=== PATIENT | female | born 1980 | race African-American/Black ===

== ENCOUNTER 2018-07-20 09:45 | Inpatient (IN) | payer OTHER ==
[2018-07-20 10:12] LABS: #Lymphocytes 1.8 thou/uL (1.20-3.40); #Monocytes 0.6 thou/uL (0.11-0.59); #Neutrophils 9.2 thou/uL (1.40-6.50); %Basophils 0.2 % (0.0-1.0); %Eosinophils 0.3 % (0.0-10.0); %Lymphocytes 15.7 % (21.0-51.0); %Monocytes 4.9 % (0.0-10.0); %Neutrophils 78.8 % (42.0-75.0); Mean Corpuscular HGB CONC 30.9 g/dL (32.0-36.0); Mean Corpuscular Hemoglobin 20.4 pg (27.0-31.0); Mean Corpuscular Volume 66.1 fL (78.0-98.0); Mean Platelet Volume 9.1 fL (7.4-10.4); Platelet Count 354 thou/uL (130-400); RBC Distribution Width 15.4 % (11.5-14.5); Red Blood Cell (RBC) Count 5.88 mill/uL (4.20-5.40); White Blood Cell (WBC) Count 11.6 thou/uL (4.8-10.8)
[2018-07-20 10:34] LABS: ALT (SGPT) 12 U/L (8-55); AST (SGOT) 11 U/L (5-34); Albumin 4.3 g/dL (3.5-5.0); Alkaline Phosphatase 105 U/L (40-150); Anion Gap 15 mmol/L (10-20); BUN (Urea Nitrogen) 8 mg/dL (7.0-18.7); Bilirubin, Total 0.5 mg/dL (0.2-1.2); Calc. Creatinine Clearance 0 mL/min (70-130); Calcium 9.8 mg/dL (7.8-10.44); Carbon Dioxide 22 mmol/L (22-29); Chloride 98 mmol/L (98-107); Estimated GFR-MDRD Greater than 90; Globulin 3.7 g/dL (2.4-3.5); Glucose 276 mg/dL (70-105); Lipase 8 U/L (8-78); Potassium 3.9 mmol/L (3.5-5.1); Sodium 131 mmol/L (136-145)
[2018-07-20] MEDS ORDERED: Ondansetron PF 4 MG/2 ML Vial ONE ×2 (11:00→14:54)
[2018-07-20 11:34] LABS: BHCG - Serum Negative (NEGATIVE); Pregs Control Background? CLEAR/WHITE (CLR/WHITE); Pregs Control Bar Appear? YES (CONTROL BAR)
[2018-07-20] MEDS ORDERED: Bisacodyl 5 MG TAB PO PRN (13:50)
[2018-07-20] MEDS ORDERED: hydrALAZINE 20 MG/ML VIAL SLOW IVP PRN (13:52)
[2018-07-20] MEDS ORDERED: Dextrose 5% in Water 1,000 ML IV PRN (13:52)
[2018-07-20] MEDS ORDERED: HumaLOG 300 UNITS/3 ML VIAL SC PRN (13:52)
[2018-07-20] MEDS ORDERED: Dextrose 50% Abboject 50 ML SYRINGE SLOW IVP PRN (13:52)
--- NOTE | 2018-07-20 14:11 | HP ---
PRIMARY CARE PROVIDER: Jackie Mcguire NP. CHIEF COMPLAINT: Nausea and vomiting. HISTORY OF PRESENT ILLNESS: Ms. Mac is a pleasant 37-year-old lady, who was seen at [facility] on July 20, 2018. She reports that four days ago, she developed abdominal pain. She reports that it was all over her abdomen , initially on and off, but subsequently constant, nonradiating, currently 4/10, accompanied by nausea and vomiting, not by diarrhea. She went to an emergency room two nights ago. She was diagnosed with the urinary tract infection and received antibiotic. She also received nausea medications. She was discharged home, but continued to have nausea and vomiting. She went to the emergency room again yesterday and received more medications for nausea as well as morphine. She was then discharged home. She presented to this emergency room because she continued to have nausea and vomiting. She denies any fevers or chills. She denies any chest pain. She reports that she is unable to tolerate any oral medications or diet and feels weak overall. REVIEW OF SYSTEMS: All other systems reviewed and found to be negative. PAST MEDICAL HISTORY: Diabetes mellitus type 2, dyslipidemia, and hypertension. PAST SURGICAL HISTORY: None. SOCIAL HISTORY: The patient denies tobacco use, alcohol use, or recreational drug use. ALLERGIES: NO KNOWN DRUG ALLERGIES. CURRENT MEDICATIONS: These need to be clarified, the patient reports that she is on medications for hypertension and diabetes. FAMILY HISTORY: No family history of premature coronary artery disease. PHYSICAL EXAMINATION: GENERAL: On examination, Ms. Mac is awake and alert, not in acute distress. VITAL SIGNS: Blood pressure is 154/93, pulse 94, respiratory rate 20, and oxygen saturation 100% on room air. She is afebrile. EYES: No scleral icterus, no conjunctival pallor. ENT: Moist mucosal membranes. No oropharyngeal erythema or exudates. NECK: Supple, nontender, trachea is midline. RESPIRATORY: Accessory muscles of breathing are not active. Chest wall movements are symmetric bilaterally. Lungs are clear to auscultation without wheeze, rhonchi, or crepitations. CARDIOVASCULAR: S1 and S2 are heard, regular. Peripheral pulses palpable. No carotid bruit. No pericardial rub. ABDOMEN: Soft, mild tenderness in the epigastrium and right upper quadrant and left upper quadrant, lower abdomen is nontender, bowel sounds are heard. NEUROLOGIC: Cranial nerves 2 through 12 are intact. MUSCULOSKELETAL: Power is 5/5 in all 4 extremities. SKIN: No rashes or subcutaneous nodules. LYMPHATIC: No cervical lymphadenopathy. PSYCHIATRIC: Normal mood, normal affect, the patient is oriented to person, place, and time. LABORATORY DATA: Ms. Mac's labs and investigations were reviewed. She has leukocytosis with 11,600 white cells, of which 79% are neutrophils. MCV is low , but hemoglobin is normal. Platelet count is normal. She has hyponatremia with sodium of 131, normal potassium, and an unremarkable liver profile. Lipase is normal. Lactic acid is normal. Serum test is negative. ASSESSMENT AND PLAN: Ms. Mac is a pleasant 37-year-old lady, who was seen at [facility] on July 20, 2018. Her problem list includes; 1. Nausea and vomiting: Etiology is unclear, at this point in time, the patient will be admitted to the hospital because she is unable to tolerate oral medications or diet. Should note that she had a CT scan of abdomen and pelvis yesterday which showed a 2.5 cm right ovarian cyst, but no acute abdominal or pelvic findings otherwise. She will receive antiemetics and pain medications as needed. 2. Diabetes mellitus type 2: We will start patient on Accu-Cheks and insulin sliding scale. 3. Hypertension: We will start p.r.n. IV hydralazine, monitor vital signs and titrate antihypertensives as needed. 4. Hyponatremia: Mild, we will recheck sodium level. 5. Many thanks for allowing me to participate in your patient's care. Please feel free to contact me with any questions or concerns. LEVEL OF RISK: Moderate. LEVEL OF COMPLEXITY: Moderate. Job ID: [id number] [facility]
[2018-07-20] MEDS ORDERED: Morphine 4 MG/ML VIAL ONE (14:54)
[2018-07-20] MEDS: Sodium Chloride 0.9% 1,000 ML IV SCH (14:57)
[2018-07-20] MEDS: Ondansetron PF 4 MG/2 ML Vial IVP PRN (15:01)
[2018-07-20] MEDS: Morphine 2 MG/ML SYRINGE SLOW IVP PRN ×2 (15:02→19:13)
[2018-07-20 16:12] VITALS: BMI 37.8
[2018-07-20] MEDS: Promethazine HCl 25 MG/ML VIAL IM/IV PRN (19:13)
[2018-07-21] MEDS: Sodium Chloride 0.9% 1,000 ML IV SCH ×3 (01:08→22:13)
[2018-07-21] MEDS: Ondansetron PF 4 MG/2 ML Vial IVP PRN ×3 (04:11→21:03)
[2018-07-21] MEDS: Morphine 2 MG/ML SYRINGE SLOW IVP PRN ×4 (04:14→21:01)
[2018-07-21 06:03] LABS: Anion Gap 15 mmol/L (10-20); BUN (Urea Nitrogen) 8 mg/dL (7.0-18.7); Calc. Creatinine Clearance 198 mL/min (70-130); Calcium 8.8 mg/dL (7.8-10.44); Carbon Dioxide 19 mmol/L (22-29); Chloride 102 mmol/L (98-107); Estimated GFR-MDRD Greater than 90; Glucose 251 mg/dL (70-105); Potassium 3.8 mmol/L (3.5-5.1); Sodium 132 mmol/L (136-145)
[2018-07-21 06:42] LABS: #Lymphocytes 1.8 thou/uL (1.20-3.40); #Monocytes 0.5 thou/uL (0.11-0.59); %Basophils 0.5 % (0.0-1.0); %Eosinophils 0.2 % (0.0-10.0); %Lymphocytes 21.4 % (21.0-51.0); %Monocytes 6.1 % (0.0-10.0); %Neutrophils 71.8 % (42.0-75.0); Elliptocytes SLIGHT = 2-5 cells (100X) (0-1/hpf); Hemoglobin 11.3 g/dL (12.0-16.0); MDiff Complete? YES; Mean Corpuscular HGB CONC 30.7 g/dL (32.0-36.0); Mean Corpuscular Hemoglobin 20.7 pg (27.0-31.0); Mean Corpuscular Volume 67.3 fL (78.0-98.0); Mean Platelet Volume 9.6 fL (7.4-10.4); Platelet Count 326 thou/uL (130-400); Platelet Morphology Comment Appears Adequate; RBC Distribution Width 15.2 % (11.5-14.5); Red Blood Cell (RBC) Count 5.48 mill/uL (4.20-5.40); White Blood Cell (WBC) Count 8.3 thou/uL (4.8-10.8)
[2018-07-21] MEDS: Promethazine HCl 25 MG/ML VIAL IM/IV PRN (09:00)
--- NOTE | 2018-07-21 11:58 | PDOC.PN ---
- Subjective Encounter Start Date: 07/21/18 Encounter Start Time: 09:00 Subjective: Patient examined, reports pain to upper abdomen - Objective Vital Signs & Weight: Vital Signs (12 hours) Temp Pulse Resp BP Pulse Ox 07/21/18 07:40 99.0 F 92 16 152/81 H 98 07/21/18 04:11 99.3 F 87 14 159/87 H 98 Weight Weight 112.689 kg I&O: 07/20/18 07/21/18 07/22/18 06:59 06:59 06:59 Intake Total 1434 Output Total 1000 Balance 434 Result Diagrams: 07/21/18 04:26 07/21/18 04:26 Additional Labs: Accuchecks 07/21/18 07/20/18 07/20/18 10:43 20:47 16:40 POC Glucose 240 H 257 H 230 H Phys Exam - Physical Examination HEENT: PERRLA, moist MMs Neck: no nodes, no JVD Respiratory: clear to auscultation bilateral Cardiovascular: RRR, no significant murmur Gastrointestinal: soft, positive bowel sounds TTP upper abdomen Musculoskeletal: no edema, pulses present Neurological: non-focal, normal sensation Lymphatic: no nodes Psychiatric: normal affect Skin: cap refill <2 seconds Dx/Plan (1) Nausea & vomiting Code(s): R11.2 - NAUSEA WITH VOMITING, UNSPECIFIED Status: Acute (2) Epigastric abdominal pain Code(s): R10.13 - EPIGASTRIC PAIN Status: Acute (3) Hypertension Code(s): I10 - ESSENTIAL (PRIMARY) HYPERTENSION Status: Chronic (4) Hyponatremia Code(s): E87.1 - HYPO-OSMOLALITY AND HYPONATREMIA Status: Acute - Plan cont current plan of care Dr. Aguilar has been consulted and will perform EGD on patient tomorrow -: IV fluids, anti-emetics are ordered -: We will keep patient NPO after midnight, clear liquids today -: Will monitor, repeat labs in AM * . Review of Systems - Review of Systems Gastrointestinal: Nausea, Vomiting, Abdominal Pain - Medications/Allergies Allergies/Adverse Reactions: Allergies Allergy/AdvReac Type Severity Reaction Status Date / Time No Known Drug Allergies Allergy Verified 07/20/18 13:50 Medications: Current Medications Bisacodyl (Dulcolax) 10 mg PO DAILYPRN PRN PRN Reason: Constipation Dextrose/Water (Dextrose 50%) 25 gm SLOW IVP PRN PRN PRN Reason: Hypoglycemia Glucagon (Glucagon) 1 mg IM PRN PRN PRN Reason: Hypoglycemia Hydralazine HCl (Apresoline) 10 mg SLOW IVP Q6H PRN PRN Reason: SBP Greater Than 170 Sodium Chloride (Normal Saline 0.9%) 1,000 mls @ 100 mls/hr IV .Q10H [facility] Last Admin: 07/21/18 09:02 Dose: 1,000 mls Dextrose/Water (D5w) 1,000 mls @ 0 mls/hr IV .Q0M PRN PRN Reason: Hypoglycemia Penicillin G Potassium 2.5 (mill.units/ Device) 50 mls @ 100 mls/hr IVPB Q4HR [facility] Insulin Human Lispro (Humalog) 0 units SC .MILD SLIDING SCALE PRN PRN Reason: Mild Correctional Scale Morphine Sulfate (Morphine) 2 mg SLOW IVP Q4H PRN PRN Reason: Pain Last Admin: 07/21/18 08:55 Dose: 2 mg Ondansetron HCl (Zofran) 4 mg IVP Q6H PRN PRN Reason: Nausea/Vomiting Last Admin: 07/21/18 04:11 Dose: 4 mg Promethazine HCl (Phenergan) 25 mg IM/IV Q6H PRN PRN Reason: Nausea/Vomiting Last Admin: 07/21/18 09:00 Dose: 25 mg
[2018-07-21] MEDS ORDERED: Pen G 2.5 MILL.UNITS/50 ML BAG IVPB SCH (13:00)
[2018-07-21] MEDS: Penicillin G 2.5 MILL.units 2.5 MILL.UNITS in Premix Bag 1 BAG IVPB SCH ×3 (13:03→21:08)
--- NOTE | 2018-07-21 14:38 | CON ---
DATE OF CONSULTATION: 07/21/2018 REASON FOR CONSULTATION: Intractable nausea and vomiting. HISTORY OF PRESENT ILLNESS: Lili Mac is a 37-year-old woman with a history of obesity, diabetes, hypertension, and hyperlipidemia. She denies any prior gastrointestinal history. No prior history of peptic ulcer disease. No chronic gastrointestinal symptoms. Five days ago, she had the acute onset of generalized abdominal pain associated with nausea and vomiting. She has had vomiting every day since then. She reports she is really unable to keep any food or even liquids or pills down. There has been no diarrhea with this, in fact, her last bowel movement was five days ago when the symptoms started. Her sister got sick around the same time, and she is not sure if her sister is still symptomatic, but thinks she is better. She has gone to the Emergency Department a couple of times over the past few days and received IV fluids. Two days ago, urinalysis demonstrated 11 to 20 wbc's and urine cultures growing out group B strep. The patient was given antibiotics, but states she was not able to tolerate oral antibiotics. There was no hematemesis. Upon repeat presentation yesterday, she was admitted to the hospital. Liver tests and lipase have been normal. She had a mild leukocytosis of 11 on admission and this is now normalized this morning with IV fluids and antiemetics. She says she is still significantly nauseated and has migratory sharp abdominal pains throughout the abdomen unless she is sleeping. She has been afebrile and hemodynamically stable. She does report that she usually takes a single low-dose Advil or aspirin most every day. REVIEW OF SYSTEMS: Full review of systems including constitutional, head, eyes, ears, nose, throat, GI, , cardiovascular, respiratory, musculoskeletal, and neurologic systems are negative except as noted in the HPI. PAST MEDICAL HISTORY: Diabetes type 2, hypertension, hyperlipidemia, and obesity. ALLERGIES: NO KNOWN DRUG ALLERGIES. OUTPATIENT MEDICATIONS: 1. Metformin. 2. Lisinopril. 3. Levemir insulin 40 units daily. 4. Lipitor. FAMILY HISTORY: Noncontributory. SOCIAL HISTORY: No tobacco, alcohol, or drug use. PHYSICAL EXAMINATION: VITAL SIGNS: Temperature 99.0, pulse 92, blood pressure 152/81, and 98% oxygen saturation on room air. GENERAL: A 37-year-old woman, lying in bed fairly comfortably, in mild distress from nausea. SKIN: No jaundice. No rashes were palpable. EYES: No scleral icterus. Extraocular movements intact. ENT: Mucous membranes moist. No oral lesions. LYMPH: No submandibular or supraclavicular lymphadenopathy. Thyroid nontender to palpation. HEART: Regular rate and rhythm. LUNGS: Clear to auscultation bilaterally. ABDOMEN: Bowel sounds are present throughout. Obese, but nondistended. She is tender to palpation in the epigastrium and right upper quadrant. There is no guarding or rebound tenderness. Nontender to palpation in the lower abdomen. EXTREMITIES: No peripheral edema. VESSELS: Radial pulses 2+ bilaterally. NEURO: Cranial nerves 2 through 12 intact bilaterally. No focal deficits. LABORATORY STUDIES: WBC 8.3, hemoglobin 11.3, and platelets 326. Sodium 132, potassium 3.8, BUN 8, creatinine 0.70, glucose 240, and lactic acid 1.3. test negative. Lipase 8. Total bilirubin 0.5, alkaline phosphatase 105, AST 11, ALT 12, and albumin 4.3. From 07/18/2018, urinalysis showed 11 to 20 wbc's and urine culture is growing out group B strep. IMAGING STUDIES: CT of the abdomen and pelvis on 07/19/2018 demonstrated only a 2.5 cm right ovarian cyst and an IUD in place. There is no evidence of any inflammatory changes. Liver, spleen, pancreas, and bowel all appeared normal. ASSESSMENT AND PLAN: 1. Nausea and vomiting, intractable over the past 5 days. 2. Generalized abdominal pain, migratory. 3. Urinary tract infection with group B strep. 4. Diabetes. With normal LFTs and lipase and negative CT imaging, I doubt biliary etiology for her current symptoms. There is no evidence of bowel obstruction or suggest any significant small bowel or colonic inflammatory changes. Presentation seems most consistent with likely viral gastroenteritis. Consider also possibly nausea secondary to as yet untreated urinary tract infection. Gastroparesis or upper gastrointestinal mucosal pathology such as gastritis or peptic ulcer disease are also possibilities. At this time, I am starting the patient on IV penicillin G 2.5 million units IV q.4 hours as treatment for her group B strep, as she still seems unable to tolerate oral antibiotics. Continue supportive care with antiemetics and IV fluids. We will tentatively plan for esophagogastroduodenoscopy tomorrow to rule out peptic ulcer disease, though if the patient has symptom resolution by tomorrow, we could potentially avoid this. If all the above workup is negative, then at some point, could consider gastric emptying scan to rule out gastroparesis. Thank you for the consultation. Please call at anytime with questions or concerns. Job ID: [id number]
[2018-07-21] MEDS ORDERED: Pantoprazole 40 MG VIAL IVP SCH (22:45)
[2018-07-22] MEDS: Penicillin G 2.5 MILL.units 2.5 MILL.UNITS in Premix Bag 1 BAG IVPB SCH ×6 (00:24→20:27)
[2018-07-22] MEDS: Morphine 2 MG/ML SYRINGE SLOW IVP PRN ×4 (02:54→20:24)
[2018-07-22] MEDS: Promethazine HCl 25 MG/ML VIAL IM/IV PRN ×3 (02:56→20:43)
[2018-07-22] MEDS ORDERED: Ondansetron PF 4 MG/2 ML Vial ONE (07:48)
[2018-07-22] MEDS ORDERED: Fentanyl 100 MCG/2 ML VIAL ONE (08:00)
[2018-07-22] MEDS ORDERED: Promethazine HCl 25 MG/ML VIAL SLOW IVP PRN (08:44)
[2018-07-22] MEDS ORDERED: HYDROmorphone 2 MG/ML VIAL SLOW IVP PRN (08:44)
[2018-07-22] MEDS ORDERED: Promethazine HCl 25 MG/ML VIAL IM PRN (08:44)
[2018-07-22] MEDS ORDERED: Promethazine HCl 25 MG/ML VIAL ONE (08:46)
[2018-07-22] MEDS ORDERED: Pantoprazole 40 MG VIAL IVP SCH (09:11)
[2018-07-22] MEDS ORDERED: Sodium Chloride 0.9% (PF) 10 ML VIAL FS PRN (09:12)
--- NOTE | 2018-07-22 09:15 | OP ---
DATE OF PROCEDURE: 07/22/2018 [employer] HEL[employer] SURGEON: None. PROCEDURE PERFORMED: Esophagogastroduodenoscopy with biopsies. INDICATIONS: 1. Intractable nausea and vomiting. 2. Generalized migratory abdominal pain. MEDICATIONS: See Anesthesia record. FINDINGS: After discussion of the risks, benefits, and alternatives of the procedure, informed consent was obtained and witnessed. Pre-endoscopic cardiopulmonary examination was satisfactory. Time-out was performed before sedation was achieved. Sedation was achieved with Anesthesia assistance in the endoscopy unit. A Pentax adult upper endoscope was placed into the oropharynx and passed through the cricopharyngeus under direct visualization. The proximal and mid esophageal mucosa appeared normal. In the distal esophagus from 30 to 40 cm from the incisors, there is [id number] erosive esophagitis. There are multiple long linear erosions with friability, but no bleeding within the distal esophagus. The appearance is consistent with reflux esophagitis. The endoscope was advanced into the stomach. Forward and retroflexed views of the entire gastric mucosa were obtained. There was no evidence of any old blood or active bleeding. In the gastric antrum, there is patchy erythema and a few discrete and linear erosions. This is [id number] in severity. Biopsies were obtained from the gastric antrum and body to rule out H pylori infection. The endoscope was advanced beyond the pylorus and into the first and second portions of the duodenum, which appeared normal. The upper endoscope was completely withdrawn and the patient allowed to recover. The patient tolerated the procedure well. There were no immediate postprocedure complications. IMPRESSION: 1. Erosive esophagitis, in the distal 7 cm of the esophagus. 2. Patchy erosive gastritis in the antrum, mild to moderate. Biopsied to rule out Helicobacter pylori. 3. Otherwise, normal esophagogastroduodenoscopy. RECOMMENDATIONS: 1. Twice daily proton pump inhibitor. 2. Follow up pathology on the gastric biopsies. 3. We will go ahead and get an abdominal ultrasound. 4. Advance diet as tolerated. Job ID: [id number]
[2018-07-22] MEDS: Pantoprazole 40 MG VIAL IVP SCH ×2 (09:24→20:27)
[2018-07-22] MEDS: Sodium Chloride 0.9% 1,000 ML IV SCH ×2 (09:37→20:24)
[2018-07-22] MEDS ORDERED: Fentanyl 100 MCG/2 ML VIAL SLOW IVP SCH (10:00)
--- NOTE | 2018-07-22 10:47 | ULT ---
US Abdominal History: [Abdominal pain] Comparison: CT July 2018 Findings: Real-time grayscale and color evaluation of the abdomen was performed. Visualized portion o f the aorta IVC and pancreas are unremarkable. Hepatic echotexture is normal. Portal vein is patent with antegrade flow. Common bile duct is normal. Gallbladder wall thickness is normal. No cholelithiasis. No pericholecystic fluid. Right kidney measures 11.7 x 5.2 x 5.8 cm and the left kidney measures 12.3 x 5.4 x 4.8 cm without ma ss, hydronephrosis, or abnormal calcifications. Spleen measures 10.5 cm in length. Impression: Normal examination of the abdomen.
[2018-07-22] MEDS: Ondansetron PF 4 MG/2 ML Vial IVP PRN ×2 (11:03→16:15)
[2018-07-22] MEDS ORDERED: PROPOFOL 200 MG/20 ML VIAL ONE (12:19)
[2018-07-22] MEDS ORDERED: Lidocaine 1% PF 5 ML VIAL ONE (12:19)
[2018-07-22] MEDS: Sucralfate 1 GM TAB PO SCH ×2 (15:04→20:27)
--- NOTE | 2018-07-22 15:49 | PDOC.PN ---
- Subjective Encounter Start Date: 07/22/18 Encounter Start Time: 14:00 Subjective: Patient examined this afternoon, had an EGD this morning -: and was off the unit this am. Reports pain and nausea better -: but pain returning after sips of sprite. - Objective Vital Signs & Weight: Vital Signs (12 hours) Temp Pulse Resp BP Pulse Ox 07/22/18 11:40 98.9 F 93 16 148/97 H 98 07/22/18 09:05 98.4 F 88 20 139/95 H 100 Weight Weight 114.169 kg I&O: 07/21/18 07/22/18 07/23/18 06:59 06:59 06:59 Intake Total 1434 2398 500 Output Total 1000 2200 Balance 434 198 500 Result Diagrams: 07/21/18 04:26 07/21/18 04:26 Additional Labs: Accuchecks 07/22/18 07/22/18 07/21/18 11:43 04:39 20:54 POC Glucose 237 H 234 H 223 H 07/21/18 16:44 POC Glucose 214 H Phys Exam - Physical Examination Constitutional: NAD appears in some discomfort HEENT: PERRLA, moist MMs Neck: no nodes Respiratory: clear to auscultation bilateral Cardiovascular: RRR Gastrointestinal: soft, positive bowel sounds mild epigastric tenderness to palpation Musculoskeletal: no edema, pulses present Neurological: non-focal, normal sensation, moves all 4 limbs Lymphatic: no nodes Psychiatric: normal affect, A&O x 3 Skin: cap refill <2 seconds Dx/Plan (1) Nausea & vomiting Code(s): R11.2 - NAUSEA WITH VOMITING, UNSPECIFIED Status: Acute (2) Epigastric abdominal pain Code(s): R10.13 - EPIGASTRIC PAIN Status: Acute (3) Hypertension Code(s): I10 - ESSENTIAL (PRIMARY) HYPERTENSION Status: Chronic (4) Hyponatremia Code(s): E87.1 - HYPO-OSMOLALITY AND HYPONATREMIA Status: Acute - Plan cont current plan of care Protonix BID, added carafate, increasing diet as tolerated -: Will recheck labs in am, continue to monitor -: Continue IV fluids, anti-emetics * . Review of Systems - Review of Systems Gastrointestinal: Nausea, Abdominal Pain - Medications/Allergies Allergies/Adverse Reactions: Allergies Allergy/AdvReac Type Severity Reaction Status Date / Time No Known Drug Allergies Allergy Verified 07/20/18 13:50 Medications: Current Medications Bisacodyl (Dulcolax) 10 mg PO DAILYPRN PRN PRN Reason: Constipation Dextrose/Water (Dextrose 50%) 25 gm SLOW IVP PRN PRN PRN Reason: Hypoglycemia Glucagon (Glucagon) 1 mg IM PRN PRN PRN Reason: Hypoglycemia Hydralazine HCl (Apresoline) 10 mg SLOW IVP Q6H PRN PRN Reason: SBP Greater Than 170 Sodium Chloride (Normal Saline 0.9%) 1,000 mls @ 100 mls/hr IV .Q10H [facility] Last Admin: 07/22/18 09:37 Dose: 1,000 mls Dextrose/Water (D5w) 1,000 mls @ 0 mls/hr IV .Q0M PRN PRN Reason: Hypoglycemia Penicillin G Potassium 2.5 (mill.units/ Device) 50 mls @ 100 mls/hr IVPB Q4HR [facility] Insulin Human Lispro (Humalog) 0 units SC .MILD SLIDING SCALE PRN PRN Reason: Mild Correctional Scale Morphine Sulfate (Morphine) 2 mg SLOW IVP Q4H PRN PRN Reason: Pain Last Admin: 07/22/18 10:45 Dose: 2 mg Ondansetron HCl (Zofran) 4 mg IVP Q6H PRN PRN Reason: Nausea/Vomiting Last Admin: 07/22/18 11:03 Dose: 4 mg Pantoprazole Sodium (Protonix) 40 mg IVP Q12HR [facility] Last Admin: 07/22/18 09:24 Dose: 40 mg Promethazine HCl (Phenergan) 25 mg IM/IV Q6H PRN PRN Reason: Nausea/Vomiting Last Admin: 07/22/18 13:38 Dose: 25 mg Sodium Chloride (Normal Saline Pf) 10 ml FS PRN PRN PRN Reason: RECONSTITUTION Sucralfate (Carafate) 1 gm PO ACHS [facility] Last Admin: 07/22/18 15:04 Dose: 1 gm
[2018-07-22 19:15] LABS: Bilirubin Negative (Negative); Blood, Urine Trace (Negative); Clarity CLEAR (Clear); Glucose, Urine (Dipstick) 100 mg/dL (Negative); Leukocyte Moderate (Negative); Nitrite Negative (Negative); Protein, Urine (Dipstick) Negative (Neg-Trace); Specific Gravity, Urine 1.012 (1.002-1.036); Urobilinogen 0.2 mg/dL (0.2-1.0)
[2018-07-22 19:16] LABS: Bacteria/HPF None Seen HPF (None Seen); Hyaline Casts/LPF 0-3 HYALINE CAST LPF (0-3 Hyaline); Pathc Cast-AUWi Flag 0.27 (0-2.49); Yeast-AUWi Flag 16.4 (0-25.0)
[2018-07-22 19:18] LABS: Urine Culture Reflex No No
[2018-07-22 19:27] LABS: Amphetamine Not Detected (NotDetected); Barbiturates Screen Not Detected (NotDetected); Benzodiazepine Screen Not Detected (NotDetected); Cocaine Metabolite Screen Not Detected (NotDetected); Medtox Control Line Valid? VALID (VALID); Medtox Reader # READER 1; Methadone Not Detected (NotDetected); Methamphetamine Not Detected (NotDetected); Opiate Screen Detected (NotDetected); Oxycodone Screen Not Detected (NotDetected); Phencyclidine (PCP) Not Detected (NotDetected); THC/Cannabinoid Screen Not Detected (NotDetected); Tricyclic Screen Not Detected (NotDetected)
[2018-07-23] MEDS: Penicillin G 2.5 MILL.units 2.5 MILL.UNITS in Premix Bag 1 BAG IVPB SCH ×6 (01:04→21:40)
[2018-07-23 06:26] LABS: ALT (SGPT) Less than 7 U/L (8-55); AST (SGOT) 7 U/L (5-34); Albumin 3.5 g/dL (3.5-5.0); Alkaline Phosphatase 93 U/L (40-150); Anion Gap 12 mmol/L (10-20); BUN (Urea Nitrogen) 5 mg/dL (7.0-18.7); Bilirubin, Total 0.4 mg/dL (0.2-1.2); Calc. Creatinine Clearance 192 mL/min (70-130); Calcium 8.7 mg/dL (7.8-10.44); Carbon Dioxide 24 mmol/L (22-29); Chloride 101 mmol/L (98-107); Estimated GFR-MDRD Greater than 90; Glucose 229 mg/dL (70-105); Potassium 3.4 mmol/L (3.5-5.1); Protein, Total 6.5 g/dL (6.0-8.3); Sodium 134 mmol/L (136-145)
[2018-07-23 06:33] LABS: #Eosinphils 0.1 thou/uL (0.0-0.7); #Lymphocytes 2.2 thou/uL (1.20-3.40); #Monocytes 0.6 thou/uL (0.11-0.59); #Neutrophils 6.1 thou/uL (1.40-6.50); %Basophils 0.5 % (0.0-1.0); %Eosinophils 0.7 % (0.0-10.0); %Lymphocytes 23.9 % (21.0-51.0); %Monocytes 6.7 % (0.0-10.0); %Neutrophils 68.2 % (42.0-75.0); Hemoglobin 11.5 g/dL (12.0-16.0); Mean Corpuscular HGB CONC 31.3 g/dL (32.0-36.0); Mean Corpuscular Hemoglobin 20.8 pg (27.0-31.0); Mean Corpuscular Volume 66.4 fL (78.0-98.0); Mean Platelet Volume 9.3 fL (7.4-10.4); Platelet Count 308 thou/uL (130-400); RBC Distribution Width 15.6 % (11.5-14.5); Red Blood Cell (RBC) Count 5.54 mill/uL (4.20-5.40)
[2018-07-23] MEDS: Sodium Chloride 0.9% 1,000 ML IV SCH ×2 (06:44→13:00)
[2018-07-23] MEDS: Morphine 2 MG/ML SYRINGE SLOW IVP PRN ×2 (08:33→15:39)
[2018-07-23] MEDS: Ondansetron PF 4 MG/2 ML Vial IVP PRN ×2 (08:35→15:39)
[2018-07-23] MEDS: Sucralfate 1 GM TAB PO SCH ×4 (08:35→21:40)
[2018-07-23] MEDS: Pantoprazole 40 MG VIAL IVP SCH ×2 (08:35→21:40)
--- NOTE | 2018-07-23 10:35 | PRG ---
DATE OF SERVICE: 07/23/2018 SUBJECTIVE: Ms. Mac says she is feeling a bit better today. She required some pain medication this morning, but did well all night. She is trying to advance her diet today with some nausea. No vomiting. No other complaints. OBJECTIVE: VITAL SIGNS: Temperature 99.1, pulse 91, blood pressure 159/99, and 99% oxygen saturation on room air. GENERAL: No acute distress. HEART: Regular rate and rhythm. LUNGS: Clear to auscultation bilaterally. ABDOMEN: Bowel sounds present. Soft, some mild tenderness to palpation in the epigastrium. No guarding or rebound tenderness. EXTREMITIES: No peripheral edema. LABORATORY STUDIES: Sodium 134, potassium 3.4, BUN 5, creatinine 0.73, glucose 229. LFTs all normal with total bilirubin 0.4, alkaline phosphatase 93, AST 7, and ALT less than 7. Abdominal ultrasound from yesterday was normal. No evidence of cholelithiasis. Common bile duct and gallbladder appeared normal. ASSESSMENT AND PLAN: 1. Gastritis. 2. Nausea and vomiting, improving. 3. Generalized abdominal pain, improving. 4. Erosive esophagitis. 5. Urinary tract infection with group B Streptococcus. The patient has had improvement in her symptoms after starting proton pump inhibitor. We will follow up results of gastric biopsies as an outpatient, sure she does not have Helicobacter pylori. Her urinary tract infection should have been adequately treated at this point with a couple of days of penicillin G IV, and I think the antibiotics can be stopped on hospital discharge. If the patient is tolerating her diet and doing well this afternoon, I think she could be safely discharged from the hospital. We will keep her on the twice daily PPI. We will plan to see her back in GI Clinic in the next 3 to 4 weeks. Job ID: [id number]
[2018-07-23] MEDS: Promethazine HCl 25 MG/ML VIAL IM/IV PRN ×2 (10:48→17:16)
--- NOTE | 2018-07-23 19:55 | PDOC.PN ---
- Subjective Encounter Start Date: 07/23/18 Encounter Start Time: 09:20 Pt seen for followup re: abdo pain. c/o on and off upper abdo pain, slightly improved. Unabe to tolerate diet. - Objective MAR Reviewed: Yes Vital Signs & Weight: Vital Signs (12 hours) Temp Pulse Resp BP Pulse Ox 07/23/18 19:29 98.5 F 105 H 16 126/84 97 07/23/18 15:22 98.6 F 106 H 20 141/101 H 95 07/23/18 11:03 98.6 F 106 H 20 136/94 H 98 07/23/18 07:55 99.1 F 91 20 159/99 H 99 Weight Weight 251 lb 11.2 oz I&O: 07/22/18 07/23/18 07/24/18 06:59 06:59 06:59 Intake Total 2398 3868 2500 Output Total 2200 1200 1600 Balance 198 2668 900 Result Diagrams: 07/23/18 04:49 07/23/18 04:49 Additional Labs: Accuchecks 07/23/18 07/23/18 07/22/18 16:39 11:09 20:54 POC Glucose 200 H 192 H 231 H Labs reviewed by me Phys Exam - Physical Examination Obese HEENT: moist MMs Neck: supple Respiratory: clear to auscultation bilateral Cardiovascular: RRR mild diffuse tenderness, no guarding or rigidity Neurological: moves all 4 limbs Psychiatric: normal affect Dx/Plan (1) Epigastric abdominal pain Code(s): R10.13 - EPIGASTRIC PAIN Status: Acute Comment: Improving, continue pain medications (2) Hypokalemia Code(s): E87.6 - HYPOKALEMIA Status: Acute Comment: replace potassium (3) Hypertension Code(s): I10 - ESSENTIAL (PRIMARY) HYPERTENSION Status: Chronic Comment: monitor vital signs and titrate antihypertensives as needed - Plan * . Review of Systems - Review of Systems Cardiovascular: negative: chest pain, palpitations, orthopnea, paroxysmal nocturnal dyspnea, edema, light headedness Gastrointestinal: Nausea, Abdominal Pain. negative: Vomiting, Diarrhea, Constipation, Melena, Hematochezia - Medications/Allergies Allergies/Adverse Reactions: Allergies Allergy/AdvReac Type Severity Reaction Status Date / Time No Known Drug Allergies Allergy Verified 07/20/18 13:50 Medications: Current Medications Bisacodyl (Dulcolax) 10 mg PO DAILYPRN PRN PRN Reason: Constipation Dextrose/Water (Dextrose 50%) 25 gm SLOW IVP PRN PRN PRN Reason: Hypoglycemia Glucagon (Glucagon) 1 mg IM PRN PRN PRN Reason: Hypoglycemia Hydralazine HCl (Apresoline) 10 mg SLOW IVP Q6H PRN PRN Reason: SBP Greater Than 170 Sodium Chloride (Normal Saline 0.9%) 1,000 mls @ 100 mls/hr IV .Q10H [facility] Last Admin: 07/23/18 13:00 Dose: Not Given Dextrose/Water (D5w) 1,000 mls @ 0 mls/hr IV .Q0M PRN PRN Reason: Hypoglycemia Penicillin G Potassium 2.5 (mill.units/ Device) 50 mls @ 100 mls/hr IVPB Q4HR [facility] Last Admin: 07/23/18 17:16 Dose: 50 mls Insulin Human Lispro (Humalog) 0 units SC .MILD SLIDING SCALE PRN PRN Reason: Mild Correctional Scale Morphine Sulfate (Morphine) 2 mg SLOW IVP Q4H PRN PRN Reason: Pain Last Admin: 07/23/18 15:39 Dose: 2 mg Ondansetron HCl (Zofran) 4 mg IVP Q6H PRN PRN Reason: Nausea/Vomiting Last Admin: 07/23/18 15:39 Dose: 4 mg Pantoprazole Sodium (Protonix) 40 mg IVP Q12HR [facility] Last Admin: 07/23/18 08:35 Dose: 40 mg Promethazine HCl (Phenergan) 25 mg IM/IV Q6H PRN PRN Reason: Nausea/Vomiting Last Admin: 07/23/18 17:16 Dose: 25 mg Sodium Chloride (Normal Saline Pf) 10 ml FS PRN PRN PRN Reason: RECONSTITUTION Sucralfate (Carafate) 1 gm PO ACHS [facility] Last Admin: 07/23/18 17:17 Dose: 1 gm
[2018-07-23] MEDS ORDERED: Potassium Chloride 20 MEQ TAB PO SCH (20:00)
[2018-07-24] MEDS: Penicillin G 2.5 MILL.units 2.5 MILL.UNITS in Premix Bag 1 BAG IVPB SCH ×6 (01:02→20:54)
[2018-07-24] MEDS: Ondansetron PF 4 MG/2 ML Vial IVP PRN ×4 (04:16→22:17)
[2018-07-24] MEDS: Morphine 2 MG/ML SYRINGE SLOW IVP PRN (04:17)
[2018-07-24] MEDS: Sodium Chloride 0.9% 1,000 ML IV SCH ×3 (05:41→23:40)
[2018-07-24] MEDS: Sucralfate 1 GM TAB PO SCH ×4 (07:30→20:54)
[2018-07-24] MEDS: Pantoprazole 40 MG VIAL IVP SCH ×2 (07:50→21:00)
[2018-07-24] MEDS: Promethazine HCl 25 MG in Sodium Chloride 0.9% 50 ML IVPB PRN ×2 (08:08→18:45)
[2018-07-24] MEDS ORDERED: traMADol HCl 50 MG TAB PO PRN (08:57)
[2018-07-24] MEDS ORDERED: Promethazine HCl 25 MG/ML VIAL SLOW IVP PRN (09:15)
--- NOTE | 2018-07-24 09:58 | PRG ---
DATE OF SERVICE: 07/24/2018 SUBJECTIVE: Mrs. Mac says she had a really good night last night. She was able to sleep without any nausea or abdominal pain. However, this morning she does complain of nausea and actually did have an episode of emesis. Her abdominal discomfort is primarily in the lower abdomen and she attributes this to having started her. She is not interested in starting or trying Reglan. She has been getting morphine and Zofran. OBJECTIVE: VITAL SIGNS: Temperature 98.9, pulse 101, blood pressure 134/84, and 95% oxygen saturation on room air. GENERAL: No acute distress. HEART: Regular rate and rhythm. LUNGS: Clear to auscultation bilaterally. ABDOMEN: Bowel sounds present. Soft, nontender to palpation. EXTREMITIES: No peripheral edema. LABORATORY STUDIES: Glucose 204. ASSESSMENT AND PLAN: 1. Gastritis, this is mild to moderate, nonerosive. She is on Protonix 40 mg b.i.d. 2. Nausea and vomiting, persistent. I would back off the opiates as if she does have underlying gastroparesis that is probably exacerbating the situation. I offered a trial of Reglan, but the patient is not interested in trying this medication. Advance diet as tolerated today. 3. Urinary tract infection with group B strep. She has been on the IV penicillin G for 2 days now. This is probably adequate treatment for her urinary tract infection. Job ID: [id number]
[2018-07-24] MEDS ORDERED: Sodium Chloride 0.9% 1,000 ML IV SCH (20:50)
--- NOTE | 2018-07-24 21:06 | PRG ---
DATE OF SERVICE: 07/24/2018 SUBJECTIVE: The patient continues to have nausea with recurrent vomiting. She is unable to tolerate oral intake. Continues to have intermittent abdominal discomfort. No fever or chills reported. MEDICATIONS: Current medications were reviewed. 1. The patient is currently on IV fluid with penicillin G. 2. IV Protonix. 3. Tramadol as needed for pain. 4. She is currently on clear liquid diet. OBJECTIVE: VITAL SIGNS: Temperature 98.7, pulse rate of 99, respirations 20, blood pressure of 131/72, O2 saturation 96% on room air. Intake of 3650, output 1600. GENERAL: A 37-year-old female, in mild distress due to recurrent nausea. Abdominal pain is somewhat improving after tramadol. LUNGS: Clear to auscultation bilaterally. HEART: S1 and S2 present. Tachycardic. No heaves or pulsation. ABDOMEN: Soft. Mild generalized tenderness. No rebound or guarding. No costovertebral angle tenderness. EXTREMITIES: No edema or calf tenderness. LABORATORY FINDINGS: Sodium 134 with potassium 3.4 yesterday. WBC 9.0 with hemoglobin 11.5. Abdominal ultrasound was negative for acute findings. IMPRESSION: 1. Recurrent nausea, vomiting with abdominal discomfort. 2. Gastritis/erosive esophagitis, on the esophagogastroduodenoscopy. 3. Hyponatremia. 4. Hypokalemia. 5. Recent group B Streptococcus urinary tract infection. 6. Diabetes mellitus type 2 with suspected diabetic gastroparesis. 7. Hypertension. 8. Dyslipidemia. 9. Obesity with a BMI 38. PLAN: IV PPIs will be continued. We will recheck electrolytes in a.m. The patient has declined Reglan. We will continue insulin sliding scale. Continue clear liquid diet and advance as tolerated. We will replace electrolytes gradually. We will reduce IV fluid to 70 mL an hour. The patient will probably require more than 2 days for stabilization. We will change her to inpatient. Continue tramadol as needed for pain. Job ID: [id number]
[2018-07-24] MEDS ORDERED: Metoclopramide HCl 10 MG/2 ML VIAL IVP PRN (22:24)
[2018-07-25] MEDS: Penicillin G 2.5 MILL.units 2.5 MILL.UNITS in Premix Bag 1 BAG IVPB SCH ×5 (01:41→16:48)
[2018-07-25] MEDS: Sucralfate 1 GM TAB PO SCH ×4 (06:29→16:49)
[2018-07-25 08:22] LABS: Albumin 3.4 g/dL (3.5-5.0); Anion Gap 14 mmol/L (10-20); BUN (Urea Nitrogen) 6 mg/dL (7.0-18.7); BUN/Creatinine Ratio 8.33; Calc. Creatinine Clearance 195 mL/min (70-130); Calcium 8.9 mg/dL (7.8-10.44); Carbon Dioxide 22 mmol/L (22-29); Chloride 103 mmol/L (98-107); Estimated GFR-MDRD Greater than 90; Glucose 154 mg/dL (70-105); Magnesium 1.8 mg/dL (1.6-2.6); Potassium 3.3 mmol/L (3.5-5.1); Sodium 136 mmol/L (136-145)
[2018-07-25] MEDS: Pantoprazole 40 MG VIAL IVP SCH (08:24)
[2018-07-25] MEDS ORDERED: NS 0.9% w/ 20 MEQ KCL 1,000 ML/1,000 ML BAG IV SCH (08:30)
--- NOTE | 2018-07-25 14:42 | PRG ---
DATE OF SERVICE: 07/25/2018 SUBJECTIVE: Ms. Mac says she is feeling a lot better today. She has really had no nausea, minimal abdominal discomfort. She tolerated liquid diet for breakfast and lunch without any issues. She is going to be trying some more solid food this evening. OBJECTIVE: VITAL SIGNS: Temperature 97.6, pulse 101, blood pressure 120/84, 98% oxygen saturation on room air. GENERAL: No acute distress. HEART: Regular rate and rhythm. LUNGS: Clear to auscultation bilaterally. ABDOMEN: Bowel sounds present. Soft, nontender to palpation. EXTREMITIES: No peripheral edema. LABORATORY STUDIES: Sodium 136, potassium 3.3, BUN 6, creatinine 0.72, glucose 270, and magnesium 1.8. ASSESSMENT AND PLAN: 1. Gastritis, mild to moderate. The patient is now on a twice daily PPI. Continue this for now. Still awaiting results of gastric biopsies, which we will follow up on an outpatient basis. 2. Nausea and vomiting, persistent. The patient has finally had some symptomatic improvement today. I agree with advancing to regular diabetic diet this evening. If the patient is tolerating her diet, no barriers to hospital discharge from a GI perspective. 3. Urinary tract infection with group B Streptococcus. The patient has received adequate treatment for this with IV penicillin G during this hospitalization. Antibiotics can be discontinued on hospital discharge. Please call back anytime with any questions or concerns. Job ID: [id number]
[2018-07-25 16:52] VITALS: BP 106/77; TEMP 98.1
--- NOTE | 2018-07-26 06:30 | PQF ---
[employer] Winform Viewer CHEPE SHELBY DAVID JOHN [id number] CLINICAL DOCUMENTATION CLARIFICATION FORM: POST DISCHARGE Addendum to original discharge summary date: ____ Late entry note date: __ DATE: 07/26/18 ATTN: Celestine Lopez Base on your clinical judgement can you please specify the etiology of patient abdominal pain/nausea and vomiting? Please check appropriate box(s): [ ] Erosive esophagitis [ ] Erosive gastritis [ ] Diabetic gastroparesis [ ] UTI [ ] Abdominal pain of unknown etiology [ ] Other diagnosis please specify [ x] Unable to determine For continuity of documentation, please document condition throughout progress notes and discharge summary. Thank You. CLINICAL INDICATORS H and P 07/[address] Mead- She went to an emergency room two nights ago. She was diagnosed with the urinary tract infection and received antibiotic. She also received nausea medications. She was discharged home, but continued to have nausea and vomiting. She went to the emergency room again yesterday and received more medications for nausea as well as morphine. She was then discharged home. She presented to this emergency room because she continued to have nausea and vomiting. She denies any fevers or chills. She denies any chest pain. She reports that she is unable to tolerate any oral medications or diet and feels weak overall. H and P 07/[address] Mead - ASSESSMENT AND PLAN: Nausea and vomiting: Etiology is unclear, at this point in time, the patient will be admitted to the hospital because she is unable to tolerate oral medications or diet. Should note that she had a CT scan of abdomen and pelvis yesterday which showed a 25 cm right ovarian cyst, but no acute abdominal or pelvic findings otherwise. She will receive anti emetics and pain medications as needed. Consult 07/21 Jeff Sprague With normal LFTs and lipase and negative CT imaging, I doubt biliary etiology for her current symptoms. There is no evidence of bowel obstruction or suggest any significant small bowel or colonic inflammatory changes. Presentation seems most consistent with likely viral gastroenteritis. Consider also possibly nausea secondary to as yet untreated urinary tract infection. Gastroparesis or upper gastrointestinal mucosal pathology such as gastritis or peptic ulcer disease are also possibilities. At this time, I am starting the patient on IV penicillin G 2.5 million units IV q4 hours as treatment for her group B strep, as she still seems unable to tolerate oral antibiotics. Continue supportive care with antiemetics and IV fluids. We will tentatively plan for esophagogastroduodenoscopy tomorrow to rule out peptic ulcer disease, though it the patient has symptom resolution by tomorrow, we could potentially avoid this. If all the above workup is negative, then at some point, could consider gastric emptying scan to rule out gastroparesis. Consult 07/[address] Aguilar- Presentation seems most consistent with likely viral gastroenteritis. Consider also possibly nausea seconday to untreated UTI. Gastroparesis or upper gastrointestinal mucosal pathology such as gastritis or peptic ulcer disease are also possibilities Operative Report 07/[address] Aguilar- erosive esophagitis, in the distal 7cm of the esophagus Operative Report 07/[address] Aguilar- Patchy erosive gastritis in the antrum, mild to moderate PN pg.1 07/24 Dr. Aguilar-She does have underlying gastroparesis that is probably exacerbating the situation PN pg.1 07/24 Dr. Moura- Gastritis/erosive esophagitis, on the EGD PN pg.1 07/24 Dr. Moura- Diabetes mellitus type 2 with suspected diabetic gastroparesis Pnpg.1 07/25 Jeff- Gastritis, mild to moderate. The patient is now on a twice daily PPI. PN 07/23 Celestine Lopez The patient has had improvement in her symptoms after starting proton pump inhibitors Pathology Result 07/24: "Stomach Biopsy : unremarkable antral-type mucosa, no Helicobacter organisms identified" RISK FACTORS Diabetes mellitus- H and P pg.1 Hyponatremia- H and P pg.2 Erosive esophagitis-Operative Report 07/[address] Aguilar Erosive gastritits-Operative Report 07/[address] Aguilar UTI - H and P 07/[address] Mead TREATMENTS: EGD with biopsy- Operative Report 07/[address] Aguilar IV fluids- MAR Bisacodyl (Dulcolax) 10mg PO Daily PRN- MAR Odansetron (zorfan) 4mg IV [id number] Morphine 2mg IV slow Q4H PRN- MAR Pantoprazole (Protonix) 40mg IV Q12H- MAR Abdominal Ultrasound : 07/22 Imaging IV Pen G MAR (This form is maintained as a part of the permanent medical record) 2014 [employer]. All Rights Reserved [email or web address] [not provided] MTDD
--- NOTE | 2018-07-26 07:58 | DIS ---
DATE OF ADMISSION: 07/20/2018 DATE OF DISCHARGE: 07/25/2018 DISCHARGE DISPOSITION: Home. FOLLOWUP: 1. Follow up with primary care physician, Jackie Mcguire, in 1 week. 2. Follow up with Dr. Celestine Aguilar in 2 to 3 weeks. ALLERGIES: NO KNOWN DRUG ALLERGIES. DISCHARGE MEDICATIONS: 1. Zofran as needed. 2. Protonix 40 mg b.i.d. All other home medications were left unchanged. BRIEF HOSPITAL COURSE: The patient is a 37-year-old female with diabetes mellitus type 2, presented to the hospital with persistent nausea and vomiting, along with epigastric discomfort. Please refer to the history and physical for further details. The patient was admitted to the hospital with a diagnosis of persistent nausea, vomiting with epigastric discomfort. CT scan of the abdomen and pelvis in the emergency room showed a 2.5 cm right ovarian cyst without any other acute finding. She was started on IV proton-pump inhibitor, as well as emetics. Due to persistent nausea and vomiting, she was evaluated by Dr. Aguilar. She underwent EGD on 22 Jul 2018, that showed erosive esophagitis in the distal 7 cm of the esophagus along with patchy erosive gastritis in the antrum. A right upper quadrant ultrasound was also done that was negative for acute findings. She is currently tolerating regular food and appears stable for discharge. FINAL DIAGNOSES: 1. Persistent nausea and vomiting with abdominal discomfort, improved. Probably secondary to erosive esophagitis/gastritis. Questionable diabetic gastroparesis could be contributing to a symptom. 2. Gastritis/erosive esophagitis on the esophagogastroduodenoscopy. 3. Hyponatremia, replaced. 4. Hypokalemia replaced. 5. Diabetes mellitus type 2 with suspected diabetic gastroparesis. 6. Hypertension. 7. Dyslipidemia. 8. Recent group B Streptococcus urinary tract infection. She completed antibiotics during this hospital stay. 9. Obesity with a body mass index of 38. 10. A 2.5 cm right ovarian cyst. PLAN: Plan of care was discussed with the patient in detail. She stated understanding. Job ID: [id number]
== END 2018-07-25 18:46 | disposition home or self-care (01) | DRG 392 ==
LOC: ERS 09:45 → OBSVTOIN 14:39 → ERHOLD 14:39 → 2SW 15:58 → T4-A 07-24 19:51
PROVIDERS: ADMIT Internal Medicine; ATTEND Internal Medicine
PROC: 0DB78ZX Excision of Stomach, Pylorus, Via Natural or Artificial Opening Endoscopic, Diagnostic (ICD-10-PCS; principal; 2018-07-22)
DX: R10.9 Unspecified abdominal pain (principal); K22.10 Ulcer of esophagus without bleeding; E87.1 Hypo-osmolality and hyponatremia; N39.0 Urinary tract infection, site not specified; K25.9 Gastric ulcer, unspecified as acute or chronic, without hemorrhage or perforation; E11.9 Type 2 diabetes mellitus without complications; E78.5 Hyperlipidemia, unspecified; E87.6 Hypokalemia; I10 Essential (primary) hypertension; B95.1 Streptococcus, group B, as the cause of diseases classified elsewhere; E66.9 Obesity, unspecified; Z79.4 Long term (current) use of insulin; Z79.899 Other long term (current) drug therapy; Z68.38 Body mass index [BMI] 38.0-38.9, adult
CPT/HCPCS: 36415; 36416; 76700; 80048; 80053; 80069; 80306; 81001; 83605; 83690; 83735; 84703; 85025; 88305; 88312; 96361; 96374; C9113; J2001; J2270; J2405; J2540; J2550; J2704; J2765; J3010; J3480; J7050

== ENCOUNTER 2018-12-25 07:39 | Outpatient (CLI) | payer OTHER ==
--- NOTE | 2018-12-25 19:16 | NM ---
GASTRIC EMPYTING STUDY: Indication: Nausea, vomiting. Question gastroparesis. Technique: Patient was given 10 mCi Technetium labelled sulfur colloid in eggs for an solid phase emp tying study. FINDINGS: One hour: 71% emptying. Two hour: 96% emptying. Three hours: 100% emptying. T1/2: 49 minutes. POS: [facility]
== END 2018-12-25 07:40 | disposition home or self-care (01) ==
LOC: NM 07:39
PROVIDERS: ATTEND Internal Medicine
DX: K20.9 Esophagitis, unspecified (principal); R11.2 Nausea with vomiting, unspecified
CPT/HCPCS: 78264; A9541

== ENCOUNTER 2020-11-03 02:58 | Inpatient (IN) | payer OTHER ==
[2020-11-03] MEDS ORDERED: Dextrose 5% in Water 1,000 ML IV PRN (06:09)
[2020-11-03] MEDS ORDERED: Acetaminophen 325 MG TAB PO PRN (06:09)
[2020-11-03] MEDS ORDERED: Dextrose 50% Abboject 50 ML SYRINGE SLOW IVP PRN (06:09)
[2020-11-03] MEDS ORDERED: HumaLOG 300 UNITS/3 ML VIAL SC PRN (06:09)
[2020-11-03] MEDS ORDERED: Sodium Chloride 0.9% (PF) 10 ML VIAL FS PRN (06:30)
[2020-11-03 07:04] LABS: Hemoglobin 11.9 g/dL (12.0-16.0); Mean Corpuscular HGB CONC 30.6 g/dL (32.0-36.0); Mean Corpuscular Hemoglobin 21.3 pg (27.0-31.0); Mean Corpuscular Volume 69.7 fL (78.0-98.0); Mean Platelet Volume 9.3 fL (7.4-10.4); Platelet Count 323 thou/uL (130-400); RBC Distribution Width 16.7 % (11.5-14.5); Red Blood Cell (RBC) Count 5.59 mill/uL (4.20-5.40); White Blood Cell (WBC) Count 15.9 thou/uL (4.8-10.8)
[2020-11-03 07:21] LABS: ALT (SGPT) 26 U/L (8-55); AST (SGOT) 18 U/L (5-34); Albumin 4.3 g/dL (3.5-5.0); Alkaline Phosphatase 127 U/L (40-110); Anion Gap 19 mmol/L (10-20); BUN (Urea Nitrogen) 10 mg/dL (7.0-18.7); Bilirubin, Total 0.4 mg/dL (0.2-1.2); Calc. Creatinine Clearance 0 mL/min (70-130); Calcium 9.5 mg/dL (7.8-10.44); Carbon Dioxide 21 mmol/L (22-29); Chloride 105 mmol/L (98-107); Globulin 3.8 g/dL (2.4-3.5); Glucose 165 mg/dL (70-105); Potassium 4.1 mmol/L (3.5-5.1); Protein, Total 8.1 g/dL (6.0-8.3); Sodium 141 mmol/L (136-145)
[2020-11-03 08:12] LABS: #Lymphocytes 1.4 thou/uL (1.20-3.40); #Monocytes 0.1 thou/uL (0.11-0.59); #Neutrophils 14.4 thou/uL (1.40-6.50); %Basophils 0.3 % (0.0-1.0); %Eosinophils 0.2 % (0.0-10.0); %Lymphocytes 8.7 % (21.0-51.0); %Monocytes 0.6 % (0.0-10.0); %Neutrophils 90.3 % (42.0-75.0); Band 3 % (5-11); Hypochromia SLIGHT = 6-15 cells (100X) (0-5/hpf); Lymphocytes 11 % (21-51); MDiff Complete? YES; Microcytosis MODERATE=15-30 cells (100X) (0-5/hpf); Monocytes 5 % (0-10); Myelocyte 1 % (0-0); Neutrophil 80 % (42-75); Ovalocytes SLIGHT = 2-5 cells (100X) (0-1/hpf); Polychromasia SLIGHT = 2-3 cells (100X) (0-2/hpf)
[2020-11-03] MEDS ORDERED: Morphine 2 MG/ML VIAL SLOW IVP SCH ×2 (08:45→16:45)
[2020-11-03] MEDS ORDERED: Metoclopramide HCl 10 MG/2 ML VIAL IVP SCH (08:45)
[2020-11-03] MEDS: Pantoprazole 40 MG VIAL IVP SCH ×2 (09:32→21:05)
[2020-11-03 09:58] VITALS: BMI 43.5
[2020-11-03] MEDS: Dextrose 5 %-0.45 % NaCl 1,000 ML IV SCH (12:35)
[2020-11-03 12:36] LABS: Hemoglobin 12.5 g/dL (12.0-16.0)
[2020-11-03 14:31] LABS: Bacteria/HPF 4+ HPF (None Seen); Bilirubin Negative (Negative); Blood, Urine Negative (Negative); Clarity Clear (Clear); Glucose, Urine (Dipstick) Greater than 1000 mg/dL (Negative); Ketone, Urine 100 mg/dL (Negative); Leukocyte Negative Leu/uL (Negative); Nitrite Negative (Negative); Protein, Urine (Dipstick) 30 mg/dL (Neg-Trace); RBC/HPF 0-3 HPF (0-3); Specific Gravity, Urine 1.042 (1.002-1.036); Urobilinogen Normal mg/dL (Less than 2); WBC/HPF 0-3 HPF (0-3); pH, Urine 5.5 (5.0-9.0)
[2020-11-03 14:36] LABS: Amphetamine Not Detected (NotDetected); Barbiturates Screen Not Detected (NotDetected); Benzodiazepine Screen Not Detected (NotDetected); Cocaine Metabolite Screen Not Detected (NotDetected); Methadone Not Detected (NotDetected); Methamphetamine Not Detected (NotDetected); Opiate Screen Detected (NotDetected); Oxycodone Screen Not Detected (NotDetected); Phencyclidine (PCP) Not Detected (NotDetected); THC/Cannabinoid Screen Not Detected (NotDetected); Tricyclic Screen Not Detected (NotDetected)
[2020-11-03] MEDS: Ondansetron PF 4 MG/2 ML Vial IVP PRN ×2 (15:50→22:40)
[2020-11-03] MEDS: Promethazine HCl 25 MG in Sodium Chloride 0.9% 50 ML IVPB PRN (18:50)
[2020-11-03] MEDS ORDERED: hydrALAZINE 20 MG/ML VIAL SLOW IVP PRN (23:19)
[2020-11-04] MEDS: Promethazine HCl 25 MG in Sodium Chloride 0.9% 50 ML IVPB PRN ×2 (00:57→22:15)
[2020-11-04] MEDS: Dextrose 5 %-0.45 % NaCl 1,000 ML IV SCH ×3 (01:03→16:15)
[2020-11-04 08:23] LABS: #Lymphocytes 1.8 thou/uL (1.20-3.40); #Monocytes 0.5 thou/uL (0.11-0.59); #Neutrophils 11.8 thou/uL (1.40-6.50); %Basophils 0.2 % (0.0-1.0); %Eosinophils 0.2 % (0.0-10.0); %Lymphocytes 12.9 % (21.0-51.0); %Monocytes 3.4 % (0.0-10.0); %Neutrophils 83.4 % (42.0-75.0); Hemoglobin 11.4 g/dL (12.0-16.0); Mean Corpuscular HGB CONC 29.6 g/dL (32.0-36.0); Mean Corpuscular Hemoglobin 20.4 pg (27.0-31.0); Mean Platelet Volume 9.6 fL (7.4-10.4); Platelet Count 350 thou/uL (130-400); RBC Distribution Width 16.8 % (11.5-14.5); Red Blood Cell (RBC) Count 5.58 mill/uL (4.20-5.40); White Blood Cell (WBC) Count 14.1 thou/uL (4.8-10.8)
[2020-11-04 08:39] LABS: ALT (SGPT) 23 U/L (8-55); AST (SGOT) 22 U/L (5-34); Alkaline Phosphatase 121 U/L (40-110); Anion Gap 16 mmol/L (10-20); BUN (Urea Nitrogen) 13 mg/dL (7.0-18.7); Bilirubin, Total 0.4 mg/dL (0.2-1.2); Calc. Creatinine Clearance 186 mL/min (70-130); Carbon Dioxide 21 mmol/L (22-29); Chloride 106 mmol/L (98-107); Globulin 3.9 g/dL (2.4-3.5); Glucose 172 mg/dL (70-105); Potassium 4.1 mmol/L (3.5-5.1); Protein, Total 7.9 g/dL (6.0-8.3); Sodium 139 mmol/L (136-145)
[2020-11-04 09:03] LABS: Anisocytosis SLIGHT = 6-15 cells (100X) (0-5/hpf); Elliptocytes SLIGHT = 2-5 cells (100X) (0-1/hpf); MDiff Complete? YES; Microcytosis SLIGHT = 6-15 cells (100X) (0-5/hpf); Platelet Morphology Comment Appears Adequate; Poikilocytosis SLIGHT = 6-15 cells (100X) (0-5/hpf)
[2020-11-04] MEDS ORDERED: Morphine 2 MG/ML VIAL SLOW IVP PRN (09:25)
[2020-11-04] MEDS ORDERED: Morphine 4 MG/ML VIAL SLOW IVP PRN (09:28)
[2020-11-04] MEDS: Ondansetron PF 4 MG/2 ML Vial IVP PRN (09:52)
[2020-11-04] MEDS: Pantoprazole 40 MG VIAL IVP SCH ×2 (09:52→20:20)
[2020-11-04] MEDS ORDERED: Labetalol HCl 100 MG/20 ML VIAL ONE (12:16)
[2020-11-04] MEDS ORDERED: Metoprolol Tartrate 5 MG/5 ML VIAL ONE (13:03)
[2020-11-04] MEDS ORDERED: PROPOFOL 200 MG/20 ML VIAL ONE (13:03)
[2020-11-04] MEDS ORDERED: Lidocaine 1% PF 5 ML VIAL ONE (13:03)
[2020-11-05 06:07] LABS: #Basophils 0.1 thou/uL (0.0-0.2); #Eosinphils 0.1 thou/uL (0.0-0.7); #Lymphocytes 3.2 thou/uL (1.20-3.40); #Monocytes 0.6 thou/uL (0.11-0.59); %Basophils 0.7 % (0.0-1.0); %Lymphocytes 35.9 % (21.0-51.0); %Monocytes 6.2 % (0.0-10.0); %Neutrophils 56.2 % (42.0-75.0); Mean Corpuscular HGB CONC 29.9 g/dL (32.0-36.0); Mean Corpuscular Hemoglobin 20.8 pg (27.0-31.0); Mean Corpuscular Volume 69.6 fL (78.0-98.0); Mean Platelet Volume 9.3 fL (7.4-10.4); Platelet Count 312 thou/uL (130-400); RBC Distribution Width 16.6 % (11.5-14.5); Red Blood Cell (RBC) Count 5.29 mill/uL (4.20-5.40); White Blood Cell (WBC) Count 8.9 thou/uL (4.8-10.8)
[2020-11-05 06:26] LABS: ALT (SGPT) 20 U/L (8-55); AST (SGOT) 15 U/L (5-34); Albumin 3.4 g/dL (3.5-5.0); Alkaline Phosphatase 93 U/L (40-110); Anion Gap 10 mmol/L (10-20); BUN (Urea Nitrogen) 14 mg/dL (7.0-18.7); Bilirubin, Total 0.5 mg/dL (0.2-1.2); Calc. Creatinine Clearance 173 mL/min (70-130); Calcium 8.5 mg/dL (7.8-10.44); Carbon Dioxide 24 mmol/L (22-29); Chloride 107 mmol/L (98-107); Globulin 3.1 g/dL (2.4-3.5); Glucose 179 mg/dL (70-105); Potassium 3.4 mmol/L (3.5-5.1); Protein, Total 6.5 g/dL (6.0-8.3); Sodium 138 mmol/L (136-145)
[2020-11-05] MEDS: Metoclopramide HCl 10 MG/2 ML VIAL IVP SCH ×3 (08:03→20:23)
[2020-11-05] MEDS: Pantoprazole 40 MG VIAL IVP SCH ×2 (08:07→20:23)
[2020-11-05] MEDS: cefTRIAXone\\ROCEPHIN 1 GM in Sodium Chloride 0.9% 100 ML IVPB SCH (08:43)
[2020-11-05] MEDS ORDERED: Potassium Chloride 20 MEQ TAB PO SCH (09:00)
[2020-11-05] MEDS: Dextrose 5 %-0.45 % NaCl 1,000 ML IV SCH (18:56)
[2020-11-06] MEDS: Metoclopramide HCl 10 MG/2 ML VIAL IVP SCH ×4 (01:33→20:41)
[2020-11-06] MEDS: Dextrose 5 %-0.45 % NaCl 1,000 ML IV SCH (05:13)
[2020-11-06] MEDS: cefTRIAXone\\ROCEPHIN 1 GM in Sodium Chloride 0.9% 100 ML IVPB SCH (07:47)
[2020-11-06] MEDS: Pantoprazole 40 MG VIAL IVP SCH ×2 (07:48→22:51)
[2020-11-06] MEDS: HumaLOG 300 UNITS/3 ML VIAL SC PRN ×2 (12:21→18:20)
[2020-11-07] MEDS: Dextrose 5 %-0.45 % NaCl 1,000 ML IV SCH ×2 (00:41→08:47)
[2020-11-07] MEDS: Metoclopramide HCl 10 MG/2 ML VIAL IVP SCH ×5 (03:24→17:24)
[2020-11-07] MEDS: cefTRIAXone\\ROCEPHIN 1 GM in Sodium Chloride 0.9% 100 ML IVPB SCH (08:10)
[2020-11-07] MEDS: Pantoprazole 40 MG VIAL IVP SCH (08:11)
[2020-11-07] MEDS ORDERED: Ketorolac Tromethamine 30 MG/ML VIAL ONE (11:20)
[2020-11-07] MEDS ORDERED: Acetaminophen 500 MG TAB ONE (11:20)
[2020-11-07] MEDS ORDERED: Scopolamine 1.5 mg/72 hour Patch ONE (11:20)
[2020-11-07] MEDS ORDERED: SUGAMMADEX SODIUM 200 MG/2 ML VIAL ONE (12:55)
[2020-11-07] MEDS ORDERED: Fentanyl 100 MCG/2 ML VIAL ONE ×3 (12:55→14:58)
[2020-11-07] MEDS ORDERED: Lidocaine 1% w/Epinephrine 1:100K 20 ML VIAL ONE (12:59)
[2020-11-07] MEDS ORDERED: Bupivacaine 0.25% HCL 30 ML VIAL ONE (12:59)
[2020-11-07] MEDS ORDERED: Bupivacaine PF 0.5% 30 ML VIAL ONE (13:03)
[2020-11-07] MEDS ORDERED: PROPOFOL 200 MG/20 ML VIAL ONE (13:14)
[2020-11-07] MEDS ORDERED: Succinylcholine 200 MG/10 ml SYRINGE FS ONE (13:14)
[2020-11-07] MEDS ORDERED: Ondansetron PF 4 MG/2 ML Vial ONE (13:14)
[2020-11-07] MEDS ORDERED: Rocuronium Bromide 10 MG/ML (10ML VIAL) ONE (13:14)
[2020-11-07] MEDS ORDERED: Lidocaine 1% PF 5 ML VIAL ONE (13:14)
[2020-11-07] MEDS ORDERED: Promethazine HCl 25 MG/ML VIAL IM PRN (14:21)
[2020-11-07] MEDS ORDERED: Meperidine HCl/PF 25 MG/ML VIAL SLOW IVP PRN (14:21)
[2020-11-07] MEDS ORDERED: Promethazine HCl 25 MG/ML VIAL IVPB PRN (14:21)
[2020-11-07] MEDS ORDERED: Labetalol HCl 100 MG/20 ML VIAL SLOW IVP PRN (14:21)
[2020-11-07] MEDS ORDERED: Ondansetron HCl/PF 4 MG/2 ML Vial IVP PRN (14:21)
[2020-11-07] MEDS ORDERED: Labetalol HCl 100 MG/20 ML VIAL ONE (14:23)
[2020-11-07] MEDS ORDERED: Acetaminophen 500 MG TAB PO PRN (14:28)
[2020-11-07] MEDS ORDERED: traMADol HCl 50 MG TAB PO PRN (14:28)
[2020-11-07] MEDS ORDERED: Ibuprofen 600 MG TAB PO PRN (14:28)
[2020-11-07] MEDS ORDERED: Promethazine HCl 25 MG/ML VIAL ONE (14:35)
[2020-11-07] MEDS: Ondansetron PF 4 MG/2 ML Vial IVP PRN ×2 (16:22→22:25)
[2020-11-07] MEDS ORDERED: Ondansetron ODT 8 MG TAB SL PRN (16:35)
[2020-11-07] MEDS ORDERED: Ketorolac Tromethamine 30 MG/ML VIAL IVP SCH (16:45)
[2020-11-07] MEDS ORDERED: Ondansetron PF 4 MG/2 ML Vial IVP SCH (16:45)
[2020-11-07] MEDS ORDERED: Promethazine HCl 25 MG SUPP PR PRN (17:21)
[2020-11-07] MEDS: Promethazine HCl 25 MG/ML VIAL IM PRN ×2 (19:31→23:54)
[2020-11-07] MEDS: Ketorolac Tromethamine 30 MG/ML VIAL IVP PRN (19:31)
[2020-11-07] MEDS: Morphine 4 MG/ML VIAL SLOW IVP PRN (20:15)
[2020-11-07] MEDS: Atorvastatin Calcium 20 MG TAB PO SCH (21:04)
[2020-11-07] MEDS: Lantus 1000 UNITS/10 ML VIAL SC SCH (21:05)
[2020-11-08] MEDS: Ketorolac Tromethamine 30 MG/ML VIAL IVP PRN ×3 (02:31→18:37)
[2020-11-08] MEDS: Morphine 4 MG/ML VIAL SLOW IVP PRN ×3 (02:31→10:26)
[2020-11-08] MEDS: Promethazine HCl 25 MG/ML VIAL IM PRN ×3 (05:23→18:44)
[2020-11-08] MEDS: Ondansetron PF 4 MG/2 ML Vial IVP PRN ×3 (06:34→18:31)
[2020-11-08] MEDS: Lantus 1000 UNITS/10 ML VIAL SC SCH ×2 (08:00→21:04)
[2020-11-08] MEDS ORDERED: Non-Formulary Item 1 EACH (Semaglutide [Rybelsus] 3 MG Tablet) PO SCH (09:00)
[2020-11-08] MEDS ORDERED: Piperacillin/Tazobactam 3.375 GM in Sodium Chloride 0.9% 100 ML IVPB SCH ×2 (11:06→12:00)
[2020-11-08] MEDS: Lisinopril 5 MG TAB PO SCH (18:41)
[2020-11-08] MEDS: Aspirin Chewable 81 MG TAB PO SCH (18:42)
[2020-11-08 18:45] LABS: Hemoglobin 12.2 g/dL (12.0-16.0); Mean Corpuscular HGB CONC 30.5 g/dL (32.0-36.0); Mean Corpuscular Hemoglobin 21.2 pg (27.0-31.0); Mean Corpuscular Volume 69.4 fL (78.0-98.0); Mean Platelet Volume 10.4 fL (7.4-10.4); Platelet Count 316 thou/uL (130-400); RBC Distribution Width 17.5 % (11.5-14.5); Red Blood Cell (RBC) Count 5.77 mill/uL (4.20-5.40); White Blood Cell (WBC) Count 12.5 thou/uL (4.8-10.8)
[2020-11-08 19:06] LABS: ALT (SGPT) 109 U/L (8-55); AST (SGOT) 94 U/L (5-34); Alkaline Phosphatase 115 U/L (40-110); Anion Gap 21 mmol/L (10-20); BUN (Urea Nitrogen) 10 mg/dL (7.0-18.7); Bilirubin, Total 0.5 mg/dL (0.2-1.2); Calc. Creatinine Clearance 160 mL/min (70-130); Calcium 9.2 mg/dL (7.8-10.44); Carbon Dioxide 16 mmol/L (22-29); Chloride 105 mmol/L (98-107); Globulin 3.6 g/dL (2.4-3.5); Glucose 148 mg/dL (70-105); Magnesium 2.2 mg/dL (1.6-2.6); Potassium 4.1 mmol/L (3.5-5.1); Protein, Total 7.6 g/dL (6.0-8.3); Sodium 138 mmol/L (136-145)
[2020-11-08] MEDS ORDERED: Pantoprazole 40 MG VIAL IVP SCH (19:30)
[2020-11-08] MEDS: Calcium Carbonate 500 MG ChewTAB PO PRN (19:33)
[2020-11-08] MEDS ORDERED: Amoxicillin/Potassium Clav 875 MG TAB PO SCH (21:00)
[2020-11-08] MEDS: Piperacillin/Tazobactam 3.375 GM in Sodium Chloride 0.9% 100 ML IVPB SCH (21:03)
[2020-11-08] MEDS: Atorvastatin Calcium 20 MG TAB PO SCH (21:04)
[2020-11-09] MEDS: Piperacillin/Tazobactam 3.375 GM in Sodium Chloride 0.9% 100 ML IVPB SCH ×3 (04:13→20:22)
[2020-11-09] MEDS: Promethazine HCl 25 MG/ML VIAL IM PRN ×3 (06:17→20:14)
[2020-11-09] MEDS: Ondansetron PF 4 MG/2 ML Vial IVP PRN ×2 (06:17→18:32)
[2020-11-09] MEDS: Ketorolac Tromethamine 30 MG/ML VIAL IVP PRN ×2 (06:20→20:17)
[2020-11-09] MEDS: Morphine 4 MG/ML VIAL SLOW IVP PRN ×2 (06:59→11:19)
[2020-11-09] MEDS ORDERED: Iopamidol 370 76% 50 ML VIAL FS ONE (08:51)
[2020-11-09] MEDS ORDERED: Iopamidol-370 76% 500 ML 1 ML ONE (08:51)
[2020-11-09] MEDS: Lisinopril 5 MG TAB PO SCH ×2 (09:05→10:00)
[2020-11-09] MEDS: Aspirin Chewable 81 MG TAB PO SCH (09:05)
[2020-11-09] MEDS: Pantoprazole 40 MG VIAL IVP SCH (09:13)
[2020-11-09] MEDS: Lantus 1000 UNITS/10 ML VIAL SC SCH ×2 (09:14→21:29)
[2020-11-09] MEDS ORDERED: traMADol HCl 50 MG TAB PO PRN (09:30)
[2020-11-09] MEDS: Acetaminophen 500 MG TAB PO SCH ×3 (10:00→20:14)
[2020-11-09 10:03] LABS: Mean Corpuscular HGB CONC 31.5 g/dL (32.0-36.0); Mean Corpuscular Hemoglobin 21.9 pg (27.0-31.0); Mean Corpuscular Volume 69.6 fL (78.0-98.0); Mean Platelet Volume 9.9 fL (7.4-10.4); Platelet Count 288 thou/uL (130-400); RBC Distribution Width 17.1 % (11.5-14.5); Red Blood Cell (RBC) Count 5.47 mill/uL (4.20-5.40); White Blood Cell (WBC) Count 13.7 thou/uL (4.8-10.8)
[2020-11-09 10:06] LABS: ALT (SGPT) 102 U/L (8-55); AST (SGOT) 68 U/L (5-34); Albumin 3.8 g/dL (3.5-5.0); Alkaline Phosphatase 107 U/L (40-110); Anion Gap 20 mmol/L (10-20); BUN (Urea Nitrogen) 14 mg/dL (7.0-18.7); Bilirubin, Total 0.6 mg/dL (0.2-1.2); Calc. Creatinine Clearance 149 mL/min (70-130); Calcium 9.1 mg/dL (7.8-10.44); Carbon Dioxide 18 mmol/L (22-29); Chloride 105 mmol/L (98-107); Globulin 3.5 g/dL (2.4-3.5); Glucose 170 mg/dL (70-105); Lipase 30 U/L (8-78); Magnesium 2.1 mg/dL (1.6-2.6); Phosphorus 2.1 mg/dL (2.3-4.7); Potassium 3.7 mmol/L (3.5-5.1); Protein, Total 7.3 g/dL (6.0-8.3); Sodium 139 mmol/L (136-145)
[2020-11-09 10:22] LABS: Band 1 % (5-11); Lymphocytes 19 % (21-51); MDiff Complete? YES; Metamyelocyte 3 % (0-0); Neutrophil 74 % (42-75); Reactive Lymphocytes 3 % (0-10)
[2020-11-09] MEDS ORDERED: Ondansetron PF 4 MG/2 ML Vial IVP SCH (11:00)
[2020-11-09] MEDS: Sodium Chloride 0.9% 1,000 ML IV SCH (11:30)
[2020-11-09] MEDS ORDERED: traMADol HCl 50 MG TAB PO SCH (12:00)
[2020-11-09 12:06] LABS: BHCG - Serum Negative (NEGATIVE); Pregs Control Background? CLEAR/WHITE (CLR/WHITE); Pregs Control Bar Appear? YES (CONTROL BAR)
[2020-11-09 16:06] LABS: Bacteria/HPF None Seen HPF (None Seen); Bilirubin Negative (Negative); Blood, Urine 3+ (Negative); Clarity Clear (Clear); Glucose, Urine (Dipstick) Greater than 1000 mg/dL (Negative); Ketone, Urine Greater than 150 mg/dL (Negative); Leukocyte Negative Leu/uL (Negative); Nitrite Negative (Negative); Protein, Urine (Dipstick) 30 mg/dL (Neg-Trace); RBC/HPF Greater than 50 HPF (0-3); Specific Gravity, Urine 1.048 (1.002-1.036); Urobilinogen Normal mg/dL (Less than 2); pH, Urine 5.5 (5.0-9.0)
[2020-11-09 16:07] LABS: Urine Culture Reflex No No
[2020-11-09] MEDS: traMADol HCl 50 MG TAB PO SCH (18:34)
[2020-11-09] MEDS: Atorvastatin Calcium 20 MG TAB PO SCH (20:15)
[2020-11-09] MEDS: Calcium Carbonate 500 MG ChewTAB PO PRN (20:15)
[2020-11-09] MEDS: traMADol HCl 50 MG TAB PO PRN (20:15)
[2020-11-09] MEDS: Cyclobenzaprine 10 MG TAB PO PRN (20:15)
[2020-11-09] MEDS: Senokot S 8.6-50 MG TAB PO SCH (20:16)
[2020-11-10] MEDS: Ondansetron PF 4 MG/2 ML Vial IVP PRN ×2 (00:43→06:26)
[2020-11-10] MEDS: traMADol HCl 50 MG TAB PO SCH ×3 (00:43→13:11)
[2020-11-10] MEDS: Piperacillin/Tazobactam 3.375 GM in Sodium Chloride 0.9% 100 ML IVPB SCH ×2 (04:34→13:08)
[2020-11-10] MEDS: Promethazine HCl 25 MG/ML VIAL IM PRN (04:34)
[2020-11-10] MEDS: Ketorolac Tromethamine 30 MG/ML VIAL IVP PRN ×2 (04:34→09:57)
[2020-11-10] MEDS: Acetaminophen 500 MG TAB PO SCH ×2 (04:34→10:00)
[2020-11-10] MEDS: Cyclobenzaprine 10 MG TAB PO PRN (06:26)
[2020-11-10] MEDS: Sodium Chloride 0.9% 1,000 ML IV SCH (06:26)
[2020-11-10] MEDS: Calcium Carbonate 500 MG ChewTAB PO PRN (06:26)
[2020-11-10] MEDS: traMADol HCl 50 MG TAB PO PRN (06:27)
[2020-11-10 08:56] LABS: #Basophils 0.1 thou/uL (0.0-0.2); #Eosinphils 0.1 thou/uL (0.0-0.7); #Lymphocytes 2.2 thou/uL (1.20-3.40); #Monocytes 0.7 thou/uL (0.11-0.59); #Neutrophils 5.8 thou/uL (1.40-6.50); %Basophils 0.7 % (0.0-1.0); %Eosinophils 1.6 % (0.0-10.0); %Lymphocytes 24.5 % (21.0-51.0); %Monocytes 7.6 % (0.0-10.0); %Neutrophils 65.6 % (42.0-75.0); Hemoglobin 11.1 g/dL (12.0-16.0); Mean Corpuscular HGB CONC 30.8 g/dL (32.0-36.0); Mean Corpuscular Hemoglobin 21.4 pg (27.0-31.0); Mean Corpuscular Volume 69.5 fL (78.0-98.0); Mean Platelet Volume 10.3 fL (7.4-10.4); Platelet Count 275 thou/uL (130-400); RBC Distribution Width 17.2 % (11.5-14.5); White Blood Cell (WBC) Count 8.9 thou/uL (4.8-10.8)
[2020-11-10] MEDS ORDERED: Polyethylene Glycol 3350 17 GM Packet PO SCH (09:00)
[2020-11-10 09:16] LABS: ALT (SGPT) 71 U/L (8-55); AST (SGOT) 33 U/L (5-34); Albumin 3.3 g/dL (3.5-5.0); Alkaline Phosphatase 91 U/L (40-110); Anion Gap 11 mmol/L (10-20); BUN (Urea Nitrogen) 15 mg/dL (7.0-18.7); Bilirubin, Total 0.4 mg/dL (0.2-1.2); Calc. Creatinine Clearance 142 mL/min (70-130); Calcium 8.9 mg/dL (7.8-10.44); Carbon Dioxide 23 mmol/L (22-29); Chloride 108 mmol/L (98-107); Globulin 3.2 g/dL (2.4-3.5); Glucose 117 mg/dL (70-105); Potassium 3.4 mmol/L (3.5-5.1); Protein, Total 6.5 g/dL (6.0-8.3); Sodium 139 mmol/L (136-145)
[2020-11-10] MEDS: Pantoprazole 40 MG VIAL IVP SCH (09:56)
[2020-11-10] MEDS: Senokot S 8.6-50 MG TAB PO SCH (09:57)
[2020-11-10] MEDS: Lisinopril 5 MG TAB PO SCH (09:58)
[2020-11-10] MEDS: Lantus 1000 UNITS/10 ML VIAL SC SCH (09:59)
[2020-11-10] MEDS: HumaLOG 300 UNITS/3 ML VIAL SC PRN (13:14)
[2020-11-10 15:08] VITALS: BP 109/77; TEMP 98
== END 2020-11-10 15:00 | disposition home or self-care (01) | DRG 418 ==
LOC: SURG B 05:39 → OBSVTOIN 11-05 17:12
PROVIDERS: ADMIT Internal Medicine; ATTEND Internal Medicine
PROC: 0DJ08ZZ Inspection of Upper Intestinal Tract, Via Natural or Artificial Opening Endoscopic (ICD-10-PCS; 2020-11-04)
PROC: 0FT44ZZ Resection of Gallbladder, Percutaneous Endoscopic Approach (ICD-10-PCS; principal; 2020-11-07)
DX: K80.10 Calculus of gallbladder with chronic cholecystitis without obstruction (principal); Z68.41 Body mass index [BMI] 40.0-44.9, adult; K22.10 Ulcer of esophagus without bleeding; E87.1 Hypo-osmolality and hyponatremia; N39.0 Urinary tract infection, site not specified; Z16.23 Resistance to quinolones and fluoroquinolones; Z16.29 Resistance to other single specified antibiotic; E11.43 Type 2 diabetes mellitus with diabetic autonomic (poly)neuropathy; K31.84 Gastroparesis; I10 Essential (primary) hypertension; K82.8 Other specified diseases of gallbladder; E78.5 Hyperlipidemia, unspecified; E87.6 Hypokalemia; E66.01 Morbid (severe) obesity due to excess calories; B96.20 Unspecified Escherichia coli [E. coli] as the cause of diseases classified elsewhere; K59.00 Constipation, unspecified; Z20.822 Contact with and (suspected) exposure to COVID-19
CPT/HCPCS: 36415; 36416; 71045; 74177; 76705; 78227; 80053; 80306; 81001; 83036; 83690; 83735; 84100; 84443; 84703; 85025; 85027; 87077; 87086; 87186; 88304; 96374; 96375; 96376; A9537; C9113; G0378; J0360; J0500; J0690; J0696; J1815; J1885; J2270; J2405; J2543; J2550; J2704; J2765; J3010; J3490; J7042; J7050; Q9967; S0020